=== PATIENT | female | born 2000 | race Caucasian/White ===

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

== ENCOUNTER → 2020-01-24 | Outpatient (CLI) | payer BC | END | disposition home or self-care (01) | LOC: COVID19 11:50 | PROVIDERS: ATTEND Family Medicine | DX: Z20.828 Contact with and (suspected) exposure to other viral communicable diseases (principal) ==

== ENCOUNTER → 2022-09-18 | Outpatient (CLI) | payer BC | END | disposition home or self-care (01) | LOC: MRI 12:33 | PROVIDERS: ATTEND Psychiatry & Neurology Neurology | DX: G44.52 New daily persistent headache (NDPH) (principal); J32.4 Chronic pansinusitis ==